=== PATIENT | male | born 2000 | race Caucasian/White ===

== ENCOUNTER 2020-09-30 12:02 | Emergency (ER) | payer OTHER, MEDICAID ==
[2020-09-30] MEDS ORDERED: CEFAZOLIN 1 GM/D5W RTU 1 GM/50 ML RTUPB IV ONE (12:32)
[2020-09-30] MEDS ORDERED: DIPH/PERTUSS(ACELL)/TETANUS VAC/PF 0.5 ML SYR (>=10YO) IM ONE (12:32)
[2020-09-30] MEDS ORDERED: MORPHINE SULFATE 10 MG/ML INJ IV ONE (12:32)
--- NOTE | 2020-09-30 12:34 | ER Document Report ---
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 Patient states that part of the garbage truck malfunctioned crushing his left hand. Patient states that as his hand was getting caught he did pull it back. Patient was wearing gloves at the time although does have abrasions to the hand. Patient is right-hand dominant. Associated Symptoms: Other - Left hand injury Exacerbated by: Movement Relieved by: Denies Similar symptoms previously: No Recently seen / treated by doctor: No - ROS ROS below otherwise negative: Yes Systems Reviewed and Negative: Yes All other systems reviewed and negative - NEURO Neurology: DENIES: Weakness - GASTROINTESTINAL Gastrointestinal: DENIES: Nausea - MUSCULOSKELETAL Musculoskeletal: REPORTS: Extremity pain, Swelling - DERM Skin Color: Ecchymosis Skin Problems: Abrasion, Puncture Wound Past Medical History - General Information source: Patient - Social History Smoking Status: Never Smoker Frequency of alcohol use: None Drug Abuse: None Occupation: [employer] Family History: Reviewed & Not Pertinent - Medical History Medical History: Negative Surgical Hx: Negative Vertical Provider Document - CONSTITUTIONAL Agree With Documented VS: Yes Exam Limitations: No Limitations General Appearance: WD/WN, No Apparent Distress - HEENT HEENT: Atraumatic, Normocephalic - NECK Neck: Normal Inspection - RESPIRATORY Respiratory: No Respiratory Distress - CARDIOVASCULAR Pulses: Normal: Radial - MUSCULOSKELETAL/EXTREMETIES Musculoskeletal/Extremeties: Tender - Left hand tenderness to the second and third metacarpal, puncture wounds to the dorsum of the left hand about the second metacarpal, Edema, Eccymosis Notes: Positive deformity to the left second metacarpal, patient able to flex and extend fingers, decreased range of motion to the left second finger suspect likely due to pain symptoms - NEURO Level of Consciousness: Awake, Alert, Appropriate Motor/Sensory: No Motor Deficit Course - Re-evaluation Re-evalutation: 09/30/20 13:36 X-rays reviewed, patient without any acute fracture. Will still cover with antibiotics given concerns about contaminated puncture wound. Patient encouraged to follow-up with orthopedics for any persistent pain or problems. - Vital Signs Vital signs: Temp Pulse Resp BP Pulse Ox 98.7 F 57 L 16 170/74 H 100 09/30/20 12:06 09/30/20 12:06 09/30/20 12:06 09/30/20 12:06 09/30/20 12:06 - Laboratory Results Critical Laboratory Results Reviewed: No Critical Results - Radiology Results Critical Radiology Results Reviewed: No Critical Results Discharge - Discharge Clinical Impression: Abrasion Hand crush injury Qualifiers: Encounter type: initial encounter Laterality: left Qualified Code(s): S67.22XA - Crushing injury of left hand, initial encounter Condition: Stable Disposition: HOME, SELF-CARE Instructions: Abrasions ([facility]), Cephalexin ([facility]), Crush Injury ([facility]), Oral Narcotic Medication ([facility]), Tetanus Immunization Given ([facility]) Additional Instructions: Return immediately for any new or worsening symptoms: Worsening pain, fever, redness, purulent drainage or any concerning new symptoms Followup with your primary care provider, call tomorrow to make a followup appointment Follow-up with orthopedics for any persistent pain or problems Prescriptions: Cephalexin Monohydrate [Keflex 500 mg Capsule] 500 mg PO Q6H 5 Days #20 capsule Hydrocodone/Acetaminophen [[facility] 5-325 mg Tablet] 1 tab PO Q6 PRN #8 tablet PRN Reason: Referrals: SHANTI SPENCER DO [ACTIVE STAFF] - Follow up in 3-5 days
[2020-09-30] MEDS ORDERED: OXYCODONE-ACETAMINOPHEN 5-325 MG TABLET PO ONE (12:51)
[2020-09-30] MEDS ORDERED: CEPHALEXIN 500 MG CAPSULE PO ONE (12:52)
--- NOTE | 2020-09-30 13:29 | RADIOLOGY REPORT (SQ) ---
EXAM DESCRIPTION: HAND LEFT 3 VIEWS IMAGES COMPLETED DATE/TIME: 09/30/2020 11:49 am REASON FOR STUDY: crush injury. COMPARISON: None. EXAM PARAMETERS: NUMBER OF VIEWS: Three views. TECHNIQUE: AP, lateral and oblique radiographic images acquired of the left hand. LIMITATIONS: None. FINDINGS: MINERALIZATION: Normal. BONES: No acute fracture or dislocation. No worrisome bone lesions. JOINTS: No effusions. SOFT TISSUES: No soft tissue swelling. No foreign body. OTHER: No other significant finding. IMPRESSION: NEGATIVE STUDY OF THE LEFT HAND. NO RADIOGRAPHIC EVIDENCE OF ACUTE INJURY. TECHNICAL DOCUMENTATION: JOB ID: [id number] [email or web address] All Rights Reserved Reading location - IP/workstation name: [email or web address]
[2020-09-30 14:06] VITALS: BP 129/57
== END 2020-09-30 14:08 | disposition home or self-care (01) ==
LOC: ER 12:02
DX: S67.22XA Crushing injury of left hand, initial encounter (principal); S61.432A Puncture wound without foreign body of left hand, initial encounter; X58.XXXA Exposure to other specified factors, initial encounter; Y99.0 Civilian activity done for income or pay; Z23 Encounter for immunization
CPT/HCPCS: 90471; 90715; 99284